=== PATIENT | female | born 1975 ===

== ENCOUNTER → 2019-06-16 | Outpatient (CLI) | payer SELFPAY ==
[2019-06-16 16:35] LABS: RBCS (WET MOUNT) RARE RBCS SEEN; T.VAGINALIS (WET MOUNT) NO TRICHOMONAS SEEN; WBCS (WET MOUNT) 2+ WBCS SEEN; YEAST (WET MOUNT) NO YEAST SEEN
[2019-06-16 18:08] LABS: CHLAM PCR NOT DETECTED (NOT DETECT)
== END ==
LOC: LAB 16:31
PROVIDERS: ATTEND Nurse Practitioner Family
DX: N76.0 Acute vaginitis (principal); R30.0 Dysuria; R82.71 Bacteriuria
CPT/HCPCS: 87086; 87210; 87491; 87591